=== PATIENT | male | born 1980 | race Caucasian/White ===

== ENCOUNTER → 2017-07-08 | Outpatient (REF) | payer OTHER ==
[2017-07-09 09:55] LABS: C REACTIVE PROTEIN QUANTITATIV < 0.30 MG/DL (0.00-0.30)
[2017-07-09 11:03] LABS: TESTOSTERONE 505 NG/DL (241-827)
== END ==
LOC: M LAB REF 09:21
DX: R68.82 Decreased libido (principal); M25.50 Pain in unspecified joint

== ENCOUNTER → 2020-06-30 | Outpatient (CLI) | payer OTHER ==
[~2020-06-30] MED LIST: ALBU8.5H INH; DOK1CAP7 PO; ESOM0.1C PO; SILD20TA50 PO
== END ==
LOC: M LABSMTC 12:00
PROVIDERS: ATTEND Anesthesiology
DX: Z01.812 Encounter for preprocedural laboratory examination (principal); Z20.822 Contact with and (suspected) exposure to COVID-19

== ENCOUNTER 2020-07-05 10:29 | Day surgery (SDC) | payer OTHER ==
[~2020-07-05] VITALS: Ht 177.8 cm; Wt 112.0 kg
[~2020-07-05 10:29] MED LIST changes: +NS 1,000 ML IV ONE
[2020-07-05] MEDS ORDERED: propofoL 200 MG/20 ML VIAL As Ordered ONE ×2 (11:19→11:26)
--- NOTE | 2020-07-05 11:49 | ROOR ---
Patient Name: Graciela De Los Santos Procedure Date: 07/05/2020 11:19 AM Date of : 1980 Age: 40 Room: [facility] Gender: Male Note Status: Finalized Procedure: Colonoscopy Indications: Hematochezia Providers: DO Juan Jose Suárez MD: Osiel Ramos MD Requesting Provider: Medicines: Propofol per Anesthesia Complications: No immediate complications. Procedure: Pre-Anesthesia Assessment: - Prior to the procedure, a History and Physical was performed, and patient medications and allergies were reviewed. The patient is competent. The risks and benefits of the procedure and the sedation options and risks were discussed with the patient. All questions were answered and informed consent was obtained. Patient identification and proposed procedure were verified by the physician, the nurse, the nurse orthopedic and the pharmaceutical laboratory technician in the endoscopy suite. Mental Status Examination: alert and oriented. Airway Examination: normal oropharyngeal airway and neck mobility. Respiratory Examination: clear to auscultation. CV Examination: normal. Prophylactic Antibiotics: The patient does not require prophylactic antibiotics. Prior Anticoagulants: The patient has taken no previous anticoagulant or antiplatelet agents. ASA Grade Assessment: II - A patient with mild systemic disease. After reviewing the risks and benefits, the patient was deemed in satisfactory condition to undergo the procedure. The anesthesia plan was to use monitored anesthesia care (MAC). Immediately prior to administration of medications, the patient was re-assessed for adequacy to receive sedatives. The heart rate, respiratory rate, oxygen saturations, blood pressure, adequacy of pulmonary ventilation, and response to care were monitored throughout the procedure. The physical status of the patient was re-assessed after the procedure. The Colonoscope was introduced through the anus and advanced to the cecum, identified by appendiceal orifice and ileocecal valve. The colonoscopy was performed without difficulty. The patient tolerated the procedure well. Findings: Non-bleeding internal hemorrhoids were found during retroflexion. The hemorrhoids were mild and Grade II (internal hemorrhoids that prolapse but reduce spontaneously). A less than 5 mm polyp was found in the transverse colon. The polyp was pedunculated. The polyp was removed with a hot snare. Resection and retrieval were complete. Estimated blood loss was minimal. Scattered moderate inflammation characterized by altered vascularity, congestion (edema), erosions, erythema, friability and linear erosions was found in the sigmoid colon. Biopsies were taken with a cold forceps for histology. Estimated blood loss was minimal. A few small-mouthed diverticula were found in the entire colon. Impression: - Non-bleeding internal hemorrhoids. - One less than 5 mm polyp in the transverse colon, removed with a hot snare. Resected and retrieved. - Scattered moderate inflammation was found in the sigmoid colon. Biopsied. Recommendation: - Patient has a contact number available for emergencies. The signs and symptoms of potential delayed complications were discussed with the patient. Return to normal activities tomorrow. Written discharge instructions were provided to the patient. - Repeat colonoscopy in 3 - 5 years for surveillance based on pathology results. - Return to my office at appointment to be scheduled. Procedure Code(s): --- Professional --- 00722, Colonoscopy, flexible; with removal of tumor(s), polyp(s), or other lesion(s) by snare technique 65052, 59, Colonoscopy, flexible; with biopsy, single or multiple Diagnosis Code(s): --- Professional --- K64.1, Second degree hemorrhoids K63.5, Polyp of colon K52.9, Noninfective gastroenteritis and colitis, unspecified K92.1, Melena (includes Hematochezia) CPT copyright 2019 [employer]. All rights reserved. The codes documented in this report are preliminary and upon ammonia box tender review may be revised to meet current compliance requirements. Christopher Silver DO 07/05/2020 11:49:07 AM Electronically signed by Christopher Silver DO Number of Addenda: 0 Note Initiated On: 07/05/2020 11:19 AM Estimated Blood Loss: Estimated blood loss was minimal.
[2020-07-05 12:05] VITALS: BP 132/69
== END 2020-07-05 12:16 | disposition home or self-care (01) ==
LOC: M OPP 10:29
PROVIDERS: ATTEND Surgery
DX: D12.3 Benign neoplasm of transverse colon (principal); K57.30 Diverticulosis of large intestine without perforation or abscess without bleeding; K64.1 Second degree hemorrhoids; K52.9 Noninfective gastroenteritis and colitis, unspecified; K92.1 Melena; Z79.899 Other long term (current) drug therapy; Z87.891 Personal history of nicotine dependence

== ENCOUNTER → 2020-11-14 | Outpatient (REF) | payer OTHER ==
[~2020-11-14] MED LIST changes: -NS 1,000 ML IV ONE
== END ==
LOC: M LAB REF 16:08
PROVIDERS: ATTEND Physician Assistant
DX: C44.01 Basal cell carcinoma of skin of lip (principal)

== ENCOUNTER → 2022-09-10 | Outpatient (CLI) | payer OTHER ==
[~2022-09-10] MED LIST changes: +DOK1CAP4 PO; -DOK1CAP7 PO
== END ==
LOC: M CARPUL 10:06
PROVIDERS: ATTEND Family Medicine
DX: R55 Syncope and collapse (principal); I31.39 Other pericardial effusion (noninflammatory)

== ENCOUNTER → 2023-07-31 | Outpatient (CLI) | payer OTHER ==
[~2023-07-31] MED LIST changes: +ADV100INH INH; +CIAL10TA PO
== END ==
LOC: M WUC 10:08
PROVIDERS: ATTEND Family Medicine
DX: R05.9 Cough, unspecified (principal)

== ENCOUNTER 2024-01-26 10:11 | Day surgery (SDC) | payer OTHER ==
[~2024-01-26] VITALS: Ht 177.8 cm; Wt 114.8 kg
[~2024-01-26 10:11] MED LIST changes: -ESOM0.1C PO; +ESOM20CA2 PO; +LR 1,000 ML IV SCH; +OMEP10CASR PO
[2024-01-26] MEDS ORDERED: fentaNYL 100 MCG/2 ML INJECTION As Ordered ONE (11:13)
[2024-01-26] MEDS ORDERED: propofoL 200 MG/20 ML VIAL As Ordered ONE (11:13)
[2024-01-26] MEDS ORDERED: ONDANSETRON 4MG 2ML VIAL As Ordered ONE (11:13)
[2024-01-26] MEDS ORDERED: KETOROLAC 60MG 2ML VIAL As Ordered ONE (11:13)
[2024-01-26] MEDS ORDERED: LIDOCAINE 2% 100MG/5ML SDV (FOR ANES.) As Ordered ONE (11:13)
[2024-01-26] MEDS ORDERED: MIDAZOLAM INJ 2MG/2ML VIAL As Ordered ONE (11:13)
[2024-01-26] MEDS ORDERED: fentaNYL 100 MCG/2 ML INJECTION IV PRN (11:40)
[2024-01-26] MEDS ORDERED: LR 1,000 ML IV SCH (11:40)
[2024-01-26] MEDS ORDERED: HYDROMORPHONE HCL 0.5 MG/ 0.5 ML SYRINGE IV PRN (11:40)
[2024-01-26] MEDS ORDERED: ONDANSETRON 4MG 2ML VIAL IV PRN (11:40)
[2024-01-26] MEDS ORDERED: oxyCODONE 5MG TAB PO PRN (11:40)
[2024-01-26 12:40] VITALS: BP 128/75; TEMP 97.3; O2SAT 96
== END 2024-01-26 12:52 | disposition home or self-care (01) ==
LOC: M SDC 10:11
PROVIDERS: ATTEND Orthopaedic Surgery Hand Surgery
DX: G56.02 Carpal tunnel syndrome, left upper limb (principal); K21.9 Gastro-esophageal reflux disease without esophagitis; F12.10 Cannabis abuse, uncomplicated; F41.9 Anxiety disorder, unspecified; F32.A Depression, unspecified; J45.909 Unspecified asthma, uncomplicated; J30.2 Other seasonal allergic rhinitis; Z79.899 Other long term (current) drug therapy
CPT/HCPCS: 29848; J0665; J1100; J1885; J2250; J2405; J3010

== ENCOUNTER → 2024-07-16 | Outpatient (CLI) | payer OTHER ==
[~2024-07-16] MED LIST changes: -ADV100INH INH; +ADVA1AER8 INH; -LR 1,000 ML IV SCH
== END ==
LOC: M SOG 10:42
PROVIDERS: ATTEND Physician Assistant
DX: M25.511 Pain in right shoulder (principal); Z53.9 Procedure and treatment not carried out, unspecified reason

== ENCOUNTER → 2024-07-30 | Outpatient (CLI) | payer OTHER | LOC: M PLAIMG 08:15 | PROVIDERS: ATTEND Physician Assistant | DX: S46.211A Strain of muscle, fascia and tendon of other parts of biceps, right arm, initial encounter (principal); X58.XXXA Exposure to other specified factors, initial encounter; Y92.9 Unspecified place or not applicable; Y93.9 Activity, unspecified; Y99.9 Unspecified external cause status ==

== ENCOUNTER 2024-08-30 09:21 | Day surgery (SDC) | payer OTHER ==
[~2024-08-30] VITALS: Ht 177.8 cm; Wt 116.4 kg
[~2024-08-30 09:21] MED LIST changes: +NEXI20CA PO; +VENTAER INH
[2024-08-30] MEDS ORDERED: ONDANSETRON 4MG 2ML VIAL As Ordered ONE (10:17)
[2024-08-30] MEDS ORDERED: propofoL 200 MG/20 ML VIAL As Ordered ONE (10:17)
[2024-08-30] MEDS ORDERED: LIDOCAINE 2% 100MG/5ML SDV (FOR ANES.) As Ordered ONE (10:17)
[2024-08-30] MEDS ORDERED: MIDAZOLAM INJ 2MG/2ML VIAL As Ordered ONE (10:18)
[2024-08-30] MEDS ORDERED: fentaNYL 100 MCG/2 ML INJECTION As Ordered ONE (10:18)
[2024-08-30] MEDS ORDERED: LR 1,000 ML IV SCH ×2 (10:20→14:00)
[2024-08-30] MEDS ORDERED: ROCURONIUM BROMIDE 50MG/5ML VIAL As Ordered ONE (11:37)
[2024-08-30] MEDS: LIDOCAINE W/EPINEPHRINE 1% 20ML VIAL As Ordered ONE (11:51)
[2024-08-30] MEDS: ceFAZolin SODIUM 2 GM VIAL As Ordered ONE (11:59)
[2024-08-30] MEDS ORDERED: ACETAMINOPHEN 1000MG/100ML IV BAG As Ordered ONE (12:06)
[2024-08-30] MEDS ORDERED: KETOROLAC 30 MG/ML 1ML VIAL As Ordered ONE (12:19)
[2024-08-30] MEDS ORDERED: SUGAMMADEX SODIUM 500 MG/5 ML VIAL As Ordered ONE (12:19)
[2024-08-30] MEDS ORDERED: TRANEXAMIC ACID 100 MG/ML 10ML VIAL As Ordered ONE (13:27)
[2024-08-30] MEDS: VANCOMYCIN 1000MG/20ML VIAL As Ordered ONE (13:31)
[2024-08-30] MEDS: BACITRACIN OINTMENT 30GM TUBE As Ordered ONE (13:32)
[2024-08-30] MEDS ORDERED: HYDROmorphone HCL 2MG/ML 1ML VIAL As Ordered ONE (13:37)
[2024-08-30] MEDS ORDERED: ONDANSETRON 4MG 2ML VIAL IV PRN (14:00)
[2024-08-30] MEDS ORDERED: fentaNYL 100 MCG/2 ML INJECTION IV PRN (14:00)
[2024-08-30] MEDS ORDERED: PERC5TAB12 PO (14:07)
[2024-08-30] MEDS: oxyCODONE 5MG TAB PO PRN (14:48)
[2024-08-30] MEDS: HYDROMORPHONE HCL 0.5 MG/ 0.5 ML SYRINGE IV PRN (15:09)
[2024-08-30 16:45] VITALS: BP 130/71; TEMP 97.7; O2SAT 98
== END 2024-08-30 16:51 | disposition home or self-care (01) ==
LOC: M SDC 09:21
PROVIDERS: ATTEND Orthopaedic Surgery Hand Surgery
DX: S46.211A Strain of muscle, fascia and tendon of other parts of biceps, right arm, initial encounter (principal); K21.9 Gastro-esophageal reflux disease without esophagitis; F41.9 Anxiety disorder, unspecified; F32.A Depression, unspecified; J45.909 Unspecified asthma, uncomplicated; Z79.51 Long term (current) use of inhaled steroids; Z79.899 Other long term (current) drug therapy
CPT/HCPCS: 24342; 76000; C1713; J0131; J0665; J0690; J1100; J1171; J1885; J2250; J2405; J3010; J3370

== ENCOUNTER → 2024-11-09 | Outpatient (CLI) | payer OTHER ==
[~2024-11-09] MED LIST changes: +PERC5TAB12 PO
[2024-11-09 13:14] LABS: HIV 1&2 SCREEN NEGATIVE (NEGATIVE)
[2024-11-09 13:21] LABS: HEPATITIS C VIRUS ABY INDEX < 0.02 INDEX (<0.8)
[2024-11-09 13:22] LABS: Trichomonas vaginalis (AMP) NOT DETECTED (NEGATIVE)
[2024-11-09 13:46] LABS: GC DNA AMPLIFICATION NEGATIVE (NEGATIVE)
[2024-11-10 14:01] LABS: HSV 1 IGG TYPE SPECIFIC 32.00 index (<0.90); HSV 2 IGG TYPE SPECIFIC < 0.90 index (<0.90)
== END ==
LOC: M WUC 08:48
PROVIDERS: ATTEND Physician Assistant
DX: Z11.3 Encounter for screening for infections with a predominantly sexual mode of transmission (principal)

== ENCOUNTER → 2025-04-19 | Outpatient (REF) | payer OTHER | LOC: M LAB REF 17:13 | PROVIDERS: ATTEND Family Medicine | DX: Z72.51 High risk heterosexual behavior (principal) ==

== ENCOUNTER → 2025-04-20 | Outpatient (REF) | payer OTHER ==
[2025-04-20 16:02] LABS: GC DNA AMPLIFICATION NEGATIVE (NEGATIVE)
== END ==
LOC: M LAB REF 12:10
PROVIDERS: ATTEND Family Medicine
DX: Z72.51 High risk heterosexual behavior (principal)